=== PATIENT | male | born 1990 | race Caucasian/White ===

== ENCOUNTER 2019-01-19 14:15 | Emergency (ER) | payer OTHER ==
[~2019-01-19] VITALS: Ht 175.3 cm; Wt 60.0 kg
[2019-01-19] MEDS ORDERED: ONDANSETRON HCL 4 MG TABLET PO ONE (16:30)
[2019-01-19 18:07] VITALS: BP 125/88
== END 2019-01-19 18:57 | disposition home or self-care (01) ==
LOC: EMS 14:19
DX: T40.601A Poisoning by unspecified narcotics, accidental (unintentional), initial encounter (principal); F17.210 Nicotine dependence, cigarettes, uncomplicated; F11.10 Opioid abuse, uncomplicated; Y92.89 Other specified places as the place of occurrence of the external cause
CPT/HCPCS: 99283; Q0162